=== PATIENT | male | born 1975 | race Caucasian/White ===

== ENCOUNTER 2019-10-03 16:41 | Emergency (ER) | payer BC ==
[~2019-10-03] VITALS: Ht 170.2 cm; Wt 86.2 kg
[2019-10-03 16:52] VITALS: Ht 170.2 cm; Wt 86.2 kg
[2019-10-03 18:02] VITALS: BP 143/95
== END 2019-10-03 18:02 | disposition home or self-care (01) ==
LOC: ED 16:41
DX: G51.0 Bell's palsy (principal); Z88.1 Allergy status to other antibiotic agents; E11.9 Type 2 diabetes mellitus without complications
CPT/HCPCS: J7512